=== PATIENT | male | born 1980 | race Two or more races ===

== ENCOUNTER 2018-09-23 11:28 | Emergency (ER) | payer SELFPAY ==
[2018-09-23 11:33] VITALS: BP 156/96
[2018-09-23] MEDS ORDERED: PENICILLIN G BENZATHINE 1.2 MILLION UNIT/2 ML DISP.SYRIN IM ONE (12:15)
[2018-09-23] MEDS ORDERED: IBUPROFEN 800 MG TABLET PO ONE (12:15)
--- NOTE | 2018-09-23 12:19 | ER Document Report ---
HPI - HPI Patient complains to provider of: Sore throat Time Seen by Provider: 09/23/18 11:56 Pain Level: 2 Context: Patient is otherwise healthy 37-year-old male presents to the emergency department chief complaint of sore throat. Patient states he had a sore throat for 2 days. States he is also had generalized chills and subjective fever. Patient's denying any cough or congestion. He is denying any trouble breathing, denies any chest pain, denies any abdominal pain. Patient denies any medications today. Denies taking any daily medications, denies any allergies, denies any medical problems. Past Medical History - General Information source: Patient - Social History Smoking Status: Never Smoker Family History: Reviewed & Not Pertinent Vertical Provider Document - CONSTITUTIONAL Agree With Documented VS: Yes Notes: GENERAL: Alert, interacts well. No acute distress. HEAD: Normocephalic, atraumatic. EYES: Pupils equal, round, and reactive to light. Extraocular movements intact. ENT: Oral mucosa moist, tongue midline. Nares patent, TM's intact, nonerythematous, nonbulging bilaterally. Pharynx erythematous tonsils +2 bilaterally and symmetrical with exudate noted. No palatal petechiae noted. NECK: Full range of motion. Supple. Trachea midline. No lymphadenopathy appreciated LUNGS: Clear to auscultation bilaterally, no wheezes, rales, or rhonchi. No respiratory distress. HEART: Regular rate and rhythm. No murmur ABDOMEN: Soft, non-tender. Non-distended. Bowel sounds present in all 4 quadrants. EXTREMITIES: Moves all 4 extremities spontaneously. No edema, normal radial and dorsalis pedis pulses bilaterally. No cyanosis. BACK: no cervical, thoracic, lumbar midline tenderness. No saddle anesthesia, normal distal neurovascular exam. NEUROLOGICAL: Alert and oriented x3. Normal speech. cranial nerves II through XII grossly intact. PSYCH: Normal affect, normal mood. SKIN: Warm, dry, normal turgor. No rashes or lesions noted. - INFECTION CONTROL TRAVEL OUTSIDE OF THE [place] IN LAST 30 DAYS: No Course - Re-evaluation Re-evalutation: 09/23/18 12:18 Laboratory 09/23/18 11:45 Group A Strep Rapid POSITIVE Patient was treated with Bicillin and Motrin in the emergency department. Close return precautions discussed. At this time will discharge with return precautions and follow-up recommendations. Verbal discharge instructions given a the bedside and opportunity for questions given. Medication warnings reviewed. Patient is in agreement with this plan and has verbalized understanding of return precautions and the need for primary care follow-up in the next 24-72 hours. This medical record was dictated with voice recognizing software. There may be grammatical, syntax errors that are unintended. - Vital Signs Vital signs: Temp Pulse Resp BP Pulse Ox 98.6 F 70 16 156/96 H 97 09/23/18 11:33 09/23/18 11:33 09/23/18 11:33 09/23/18 11:33 09/23/18 11:33 Discharge - Discharge Clinical Impression: Strep pharyngitis Condition: Stable Disposition: HOME, SELF-CARE Instructions: Strep Throat ([facility], [facility]) Additional Instructions: You have been seen and treated in the emergency department for strep throat. You have been treated for the strep throat with an antibiotic shot. There is no need to take any other antibiotics at home. Please make sure he continue to take Tylenol or Motrin for generalized pain or fevers. Please also stay well- hydrated. Please follow-up with your primary care provider in the next 24 to 48 hours. Please return to the emergency room for any further concerns. Forms: Return to Work, Elevated Blood Pressure Referrals: [facility] [Provider Group] - Follow up as needed [facility] [Provider Group] - Follow up as needed
== END 2018-09-23 12:37 | disposition home or self-care (01) ==
LOC: ER 11:28
DX: J02.0 Streptococcal pharyngitis (principal)
CPT/HCPCS: 99283; 96372; 87880; J0561